=== PATIENT | male | born 1950 | race Caucasian/White ===

== ENCOUNTER 2016-07-14 08:45 | Outpatient (CLI) | payer MEDICARE, OTHER ==
[~2016-07-14 08:45] MED LIST: ASPIRIN 81MG TA81 MG PO; DULERA1 AR1 IH; FLUTICASONE 50M16 GM; MASON NATURAL600 MG PO; OSTEO BI-FLEX1 EAC1 PO; PROAIR HFA0.09 MG/AC IH; QNASL80 MCG/Act NS; SINGULAIR10 MG PO; VITAMIN D1000 IU PO; ZYRTEC10 M2 PO
[2016-07-14 09:36] VITALS: BP 112/67
[2016-07-14] MEDS ORDERED: AUGMENTIN 875-1 EACH PO (09:38)
[2016-07-14] MEDS ORDERED: KAPIDEX60 MG PO (09:38)
== END 2016-07-14 09:36 | disposition home or self-care (01) ==
LOC: COP 08:45
DX: J45.909 Unspecified asthma, uncomplicated (principal)
CPT/HCPCS: J2357

== ENCOUNTER 2016-08-11 09:20 | Outpatient (CLI) | payer MEDICARE, OTHER ==
[2016-08-11 09:20] VITALS: BP 116/70
[~2016-08-11 09:20] MED LIST changes: +AUGMENTIN 875-1 EACH PO; +KAPIDEX60 MG PO
== END 2016-08-11 10:20 | disposition home or self-care (01) ==
LOC: COP 09:20
DX: J45.909 Unspecified asthma, uncomplicated (principal)
CPT/HCPCS: J2357

== ENCOUNTER 2017-02-02 08:56 | Outpatient (CLI) | payer MEDICARE, OTHER ==
[2017-02-02 09:34] VITALS: BP 120/76
== END 2017-02-02 09:50 | disposition home or self-care (01) ==
LOC: COP 08:56
DX: J45.909 Unspecified asthma, uncomplicated (principal)
CPT/HCPCS: J2357

== ENCOUNTER 2017-02-16 08:50 | Outpatient (CLI) | payer MEDICARE, OTHER ==
[2017-02-16 09:33] VITALS: BP 132/71
== END 2017-02-16 09:56 | disposition home or self-care (01) ==
LOC: COP 08:50
DX: J45.909 Unspecified asthma, uncomplicated (principal)
CPT/HCPCS: J2357

== ENCOUNTER 2017-03-17 08:55 | Outpatient (CLI) | payer MEDICARE, OTHER ==
[~2017-03-17 08:55] MED LIST changes: +OMEPRAZOLE40 MG PO
[2017-03-17 09:12] VITALS: BP 124/83
== END 2017-03-17 09:31 | disposition hospice, home (50) ==
LOC: COP 08:55
DX: J45.909 Unspecified asthma, uncomplicated (principal)
CPT/HCPCS: J2357

== ENCOUNTER 2017-03-30 09:10 | Outpatient (CLI) | payer MEDICARE, OTHER ==
[2017-03-30 09:38] VITALS: BP 125/76
== END 2017-03-30 09:50 | disposition hospice, home (50) ==
LOC: COP 09:10
DX: J45.909 Unspecified asthma, uncomplicated (principal)
CPT/HCPCS: J2357

== ENCOUNTER 2017-04-13 09:25 | Outpatient (CLI) | payer MEDICARE, OTHER ==
[2017-04-13 10:12] VITALS: BP 133/75
== END 2017-04-13 10:26 | disposition home or self-care (01) ==
LOC: COP 09:25
DX: J45.909 Unspecified asthma, uncomplicated (principal)

== ENCOUNTER 2017-04-27 09:15 | Outpatient (CLI) | payer MEDICARE, OTHER ==
[2017-04-27 09:34] VITALS: BP 122/73
== END 2017-04-27 09:56 | disposition home or self-care (01) ==
LOC: COP 09:15
DX: J45.909 Unspecified asthma, uncomplicated (principal)
CPT/HCPCS: J2357

== ENCOUNTER 2017-05-25 08:55 | Outpatient (CLI) | payer MEDICARE, OTHER ==
[2017-05-25 09:25] VITALS: BP 112/61
== END 2017-05-25 09:45 | disposition home or self-care (01) ==
LOC: COP 08:55
DX: J45.909 Unspecified asthma, uncomplicated (principal)
CPT/HCPCS: J2357

== ENCOUNTER 2017-06-08 08:55 | Outpatient (CLI) | payer MEDICARE, OTHER ==
[2017-06-08 09:25] VITALS: BP 125/70
== END 2017-06-08 09:45 | disposition home or self-care (01) ==
LOC: COP 08:55
DX: J45.909 Unspecified asthma, uncomplicated (principal)
CPT/HCPCS: J2357

== ENCOUNTER 2017-06-22 09:10 | Outpatient (CLI) | payer MEDICARE, OTHER ==
[2017-06-22 09:46] VITALS: BP 116/72
== END 2017-06-22 09:59 | disposition home or self-care (01) ==
LOC: COP 09:10
DX: J45.909 Unspecified asthma, uncomplicated (principal)
CPT/HCPCS: J2357